=== PATIENT | female | born 1980 | race Caucasian/White ===

== ENCOUNTER 2017-12-18 13:38 | Outpatient (CLI) | payer OTHER | END 2017-12-18 21:13 | disposition home or self-care (01) | LOC: SLB 13:38 | PROVIDERS: ATTEND Specialist | DX: N93.8 Other specified abnormal uterine and vaginal bleeding (principal) | CPT/HCPCS: 36415; 84702-TC ==

== ENCOUNTER 2020-09-16 09:08 | Outpatient (CLI) | payer OTHER, SELFPAY ==
[~2020-09-16] VITALS: Ht 172.7 cm; Wt 72.6 kg
[2020-09-16 09:51] LABS: BASOPHILS % (AUTO) 0.6 % (0.0-2.0); EOSINOPHILS # (AUTO) 0.2 K/uL (0.0-0.4); EOSINOPHILS % (AUTO) 3.8 % (0.0-4.0); HEMATOCRIT 32.5 % (36-48); HEMOGLOBIN 10.4 g/dL (12.0-16.0); LYMPHOCYTES # (AUTO) 1.5 K/uL (1.0-5.5); LYMPHOCYTES % (AUTO) 27.1 % (20.5-51.5); MEAN CORPUSCULAR HEMOGLOBIN 25 pg (27-31); MEAN CORPUSCULAR HGB CONC 32 % (32-36); MEAN CORPUSCULAR VOLUME 78 fL (79.0-98.0); MONOCYTES # (AUTO) 0.4 K/uL (0.0-1.0); MONOCYTES % (AUTO) 7.1 % (1.7-9.3); NEUTROPHILS # (AUTO) 3.5 K/uL (1.8-7.7); NEUTROPHILS % (AUTO) 61.4 % (40.0-70.0); PLATELET COUNT (AUTO) 404 K/uL (130-430); RED BLOOD CELL COUNT(AUTO) 4.15 MIL/uL (4.2-6.2); RED CELL DISTRIBUTION WIDTH 16.5 % (9.0-15.0); WHITE BLOOD COUNT (AUTO) 5.7 K/uL (4.8-10.8)
[2020-09-16 10:06] LABS: CALCIUM 8.7 mg/dL (8.4-11.0); CREATININE 0.9 mg/dL (0.55-1.30); POTASSIUM 3.9 mmol/L (3.5-5.1)
[2020-09-16 10:12] LABS: BILIRUBIN,URINE NEGATIVE (NEGATIVE); BLOOD, URINE NEGATIVE (NEGATIVE); COLOR,URINE YELLOW (YELLOW); GLUCOSE,URINE NEGATIVE (NEGATIVE); KETONES,URINE NEGATIVE (NEGATIVE); LEUKOCYTE ESTERASE ,URINE NEGATIVE (NEGATIVE); NITRITE, URINE NEGATIVE (NEGATIVE); PROTEIN URINE NEGATIVE (NEGATIVE); UROBILINOGEN,URINE 0.2 (0.2-1.0)
[2020-09-16 10:25] LABS: CLARITY/URINE CLEAR (CLEAR)
== END 2020-09-16 21:28 | disposition home or self-care (01) ==
LOC: SUS 09:08
PROVIDERS: ATTEND Surgery
DX: Z20.828 Contact with and (suspected) exposure to other viral communicable diseases (principal); N85.9 Noninflammatory disorder of uterus, unspecified; N83.9 Noninflammatory disorder of ovary, fallopian tube and broad ligament, unspecified; K43.0 Incisional hernia with obstruction, without gangrene
CPT/HCPCS: 36415; 76830; 80048; 81003; 85025; 93005; C9803; U0003

== ENCOUNTER 2020-10-09 07:56 | Outpatient (CLI) | payer OTHER, SELFPAY ==
[2020-10-10 08:06] LABS: ESTRADIOL 36.5 pg/mL (.); FOLLICLE STIMULATION HORMONE 7.6 mIU/mL (.); LUETENIZING HORMONE 5.7 mIU/mL (.)
== END 2020-10-09 19:48 | disposition home or self-care (01) ==
LOC: SLB 07:56
PROVIDERS: ATTEND Specialist
DX: N83.8 Other noninflammatory disorders of ovary, fallopian tube and broad ligament (principal); R10.2 Pelvic and perineal pain; N94.6 Dysmenorrhea, unspecified
CPT/HCPCS: 36415; 82670; 83001; 83002; 86304

== ENCOUNTER 2020-10-30 06:10 | Day surgery (SDC) | payer OTHER, SELFPAY ==
[2020-10-25 10:27] LABS: BASOPHILS % (AUTO) 0.6 % (0.0-2.0); EOSINOPHILS # (AUTO) 0.2 K/uL (0.0-0.4); EOSINOPHILS % (AUTO) 3.4 % (0.0-4.0); HEMATOCRIT 33.8 % (36-48); HEMOGLOBIN 10.9 g/dL (12.0-16.0); LYMPHOCYTES # (AUTO) 1.5 K/uL (1.0-5.5); LYMPHOCYTES % (AUTO) 23.1 % (20.5-51.5); MEAN CORPUSCULAR HEMOGLOBIN 26 pg (27-31); MEAN CORPUSCULAR HGB CONC 32 % (32-36); MEAN CORPUSCULAR VOLUME 80 fL (79.0-98.0); MONOCYTES # (AUTO) 0.5 K/uL (0.0-1.0); MONOCYTES % (AUTO) 7.5 % (1.7-9.3); NEUTROPHILS # (AUTO) 4.2 K/uL (1.8-7.7); NEUTROPHILS % (AUTO) 65.4 % (40.0-70.0); PLATELET COUNT (AUTO) 315 K/uL (130-430); RED BLOOD CELL COUNT(AUTO) 4.22 MIL/uL (4.2-6.2); RED CELL DISTRIBUTION WIDTH 17.5 % (9.0-15.0); WHITE BLOOD COUNT (AUTO) 6.4 K/uL (4.8-10.8)
[~2020-10-30] VITALS: Ht 172.7 cm; Wt 72.6 kg
[2020-10-30 06:50] LABS: HCG,QUAL RESULT NEGATIVE (NEGATIVE)
[2020-10-30] MEDS ORDERED: LR 1,000 ML IV SCH (10:00)
[2020-10-30] MEDS ORDERED: HYDROmorphone 1 MG INJ. 1 MG/ML AMPUL IVP PRN (10:00)
[2020-10-30] MEDS ORDERED: HYDROmorphone 2 MG/ML VIAL IVP PRN ×2 (10:00)
[2020-10-30] MEDS ORDERED: MEPERIDINE HCL/PF 25 MG/ML DISP.SYRIN IVP PRN (10:00)
[2020-10-30] MEDS ORDERED: KETOROLAC TROMETHAMINE 30 MG VIAL IVP ONE ×2 (11:45→17:00)
[2020-10-30] MEDS ORDERED: KETOROLAC TROMETHAMINE 30 MG VIAL ONE ×2 (11:50→16:40)
[2020-10-30] MEDS ORDERED: ONDANSETRON HCL 4 MG/2 ML VIAL IVP PRN (12:15)
[2020-10-30] MEDS ORDERED: HYDROcodone/ACETAMIN 5-325 MG TAB (NORCO/ VICODIN) PO PRN (12:15)
[2020-10-30] MEDS ORDERED: OXYCODONE/ACETAMINOPHEN 5-325 TABLET PO PRN ×2 (12:15)
[2020-10-30] MEDS ORDERED: OXYCODONE/ACETAMINOPHEN 5-325 TABLET ONE (13:21)
[2020-10-30] MEDS ORDERED: OXYCODONE/ACETAMINOPHEN 5-325 TABLET PO ONE (13:22)
[2020-10-30 13:32] VITALS: BP_SYST 132
[2020-10-30] MEDS ORDERED: ONDANSETRON HCL 4 MG/2 ML VIAL ONE ×2 (14:16→16:39)
[2020-10-30] MEDS ORDERED: ONDANSETRON HCL 4 MG/2 ML VIAL IVP ONE (16:50)
== END 2020-10-30 18:15 | disposition home or self-care (01) ==
LOC: SDS 06:10 → SMU 06:11 → SDS 18:15
PROVIDERS: ATTEND Specialist
DX: N92.6 Irregular menstruation, unspecified (principal); K43.9 Ventral hernia without obstruction or gangrene; K80.20 Calculus of gallbladder without cholecystitis without obstruction; N80.1 Endometriosis of ovary; N20.0 Calculus of kidney; K43.6 Other and unspecified ventral hernia with obstruction, without gangrene; K42.9 Umbilical hernia without obstruction or gangrene; Z20.828 Contact with and (suspected) exposure to other viral communicable diseases; Z79.899 Other long term (current) drug therapy
CPT/HCPCS: 36415; 58662; 64488; 84703 ×2; 85025; 87086; 88305; C1727; J1885; J2405; S2900; U0003; E0190

== ENCOUNTER 2020-12-11 06:54 | Day surgery (SDC) | payer OTHER, SELFPAY ==
[2020-12-06 16:27] LABS: BILIRUBIN,URINE NEGATIVE (NEGATIVE); BLOOD, URINE NEGATIVE (NEGATIVE); CLARITY/URINE CLEAR (CLEAR); COLOR,URINE YELLOW (YELLOW); GLUCOSE,URINE NEGATIVE (NEGATIVE); KETONES,URINE NEGATIVE (NEGATIVE); LEUKOCYTE ESTERASE ,URINE NEGATIVE (NEGATIVE); NITRITE, URINE NEGATIVE (NEGATIVE); PH,URINE 6.5 (5.0-8.0); PROTEIN URINE NEGATIVE (NEGATIVE); UROBILINOGEN,URINE 0.2 (0.2-1.0)
[2020-12-06 16:39] LABS: BASOPHILS % (AUTO) 0.7 % (0.0-2.0); EOSINOPHILS # (AUTO) 0.3 K/uL (0.0-0.4); EOSINOPHILS % (AUTO) 3.8 % (0.0-4.0); HEMATOCRIT 30.3 % (36-48); HEMOGLOBIN 9.9 g/dL (12.0-16.0); LYMPHOCYTES # (AUTO) 1.4 K/uL (1.0-5.5); LYMPHOCYTES % (AUTO) 20.9 % (20.5-51.5); MEAN CORPUSCULAR HEMOGLOBIN 26 pg (27-31); MEAN CORPUSCULAR HGB CONC 33 % (32-36); MEAN CORPUSCULAR VOLUME 81 fL (79.0-98.0); MONOCYTES # (AUTO) 0.4 K/uL (0.0-1.0); MONOCYTES % (AUTO) 5.7 % (1.7-9.3); NEUTROPHILS # (AUTO) 4.7 K/uL (1.8-7.7); NEUTROPHILS % (AUTO) 68.9 % (40.0-70.0); PLATELET COUNT (AUTO) 364 K/uL (130-430); RED BLOOD CELL COUNT(AUTO) 3.75 MIL/uL (4.2-6.2); RED CELL DISTRIBUTION WIDTH 16.2 % (9.0-15.0); WHITE BLOOD COUNT (AUTO) 6.8 K/uL (4.8-10.8)
[2020-12-06 16:42] LABS: CALCIUM 8.9 mg/dL (8.4-11.0); CREATININE 0.89 mg/dL (0.55-1.30); POTASSIUM 3.8 mmol/L (3.5-5.1)
[~2020-12-11] VITALS: Ht 172.7 cm; Wt 72.6 kg
[2020-12-11 07:57] LABS: HCG,QUAL RESULT NEGATIVE (NEGATIVE)
[2020-12-11] MEDS ORDERED: BUPIVACAINE LIPOSOME/PF 266 MG/20 ML VIAL INFIL ONE (09:52)
[2020-12-11] MEDS ORDERED: POLYMYXIN 500,000/BACIT.10,000 UNITS in NS IRR 1 L IR ONE (09:53)
[2020-12-11] MEDS ORDERED: ROCURONIUM BROMIDE 10 MG/ML (ZEMURON) IV ONE (10:20)
[2020-12-11] MEDS ORDERED: ONDANSETRON HCL 4 MG/2 ML VIAL IVP ONE (10:20)
[2020-12-11] MEDS ORDERED: PHENYLEPHRINE HCL 10 MG/ML VIAL (NEOSYNEPHRINE) IV ONE (10:20)
[2020-12-11] MEDS ORDERED: SEVOFLURANE 15 MIN GAS INH ONE (10:20)
[2020-12-11] MEDS ORDERED: GLYCOPYRROLATE 0.2 MG/ML VIAL IJ ONE (10:20)
[2020-12-11] MEDS ORDERED: CEFAZOLIN 2 GM IVPB PREMIX 50 ML IV ONE (10:20)
[2020-12-11] MEDS ORDERED: fentaNYL CITRATE/PF 100 MCG/2 ML AMP IVP ONE (10:20)
[2020-12-11] MEDS ORDERED: DEXAMETHASONE SOD PHOSPHATE 4 MG/ML VIAL IVP ONE (10:20)
[2020-12-11] MEDS ORDERED: LR 500 ML IV.SOLN IV ONE (10:20)
[2020-12-11] MEDS ORDERED: PROPOFOL 200MG/ 20ML VIAL (DIPRIVAN) IV ONE (10:20)
[2020-12-11] MEDS ORDERED: PIPERACILLIN/TAZOBACTAM 3.375 GM/VIAL (ZOSYN) IV ONE (10:20)
[2020-12-11] MEDS ORDERED: SUCCINYLCHOLINE CHLORIDE 20 MG/ML(QUELICIN) IVP ONE (10:20)
[2020-12-11] MEDS ORDERED: MIDAZOLAM HCL 5 MG/5 ML VIAL IVP ONE (10:20)
[2020-12-11] MEDS ORDERED: METOCLOPRAMIDE HCL 10 MG/2 ML VIAL IVP ONE (10:20)
[2020-12-11] MEDS ORDERED: NALOXONE HCL 0.4 MG/ML AMP (NARCAN) IVP PRN (11:15)
[2020-12-11] MEDS ORDERED: KETOROLAC TROMETHAMINE 30 MG VIAL IVP PRN (11:15)
[2020-12-11] MEDS ORDERED: ONDANSETRON HCL 4 MG/2 ML VIAL IVP PRN (11:15)
[2020-12-11] MEDS ORDERED: HYDROmorphone 1 INJ. 1 MG/ML CARTRIDGE ONE (12:36)
[2020-12-11] MEDS: HYDROmorphone 1 INJ. 1 MG/ML CARTRIDGE IVP PRN ×2 (12:38→12:52)
[2020-12-11 14:40] VITALS: BP_SYST 119
== END 2020-12-11 14:25 | disposition home or self-care (01) ==
LOC: SDS 06:54 → SMU 06:54 → SDS 14:25
PROVIDERS: ATTEND Surgery
DX: K43.6 Other and unspecified ventral hernia with obstruction, without gangrene (principal); K42.0 Umbilical hernia with obstruction, without gangrene; D64.9 Anemia, unspecified; K21.9 Gastro-esophageal reflux disease without esophagitis; N20.0 Calculus of kidney; N39.3 Stress incontinence (female) (male); Z79.899 Other long term (current) drug therapy; Z20.828 Contact with and (suspected) exposure to other viral communicable diseases
CPT/HCPCS: 36415; 49561; 49568; 49587; 80048; 81003; 84703; 85025; 88302; 93005; C1781; C9290; J0330; J0690; J1100; J1170; J2250; J2370; J2405; J2543; J2704; J2765; J3010; J3490; J7120; U0003